=== PATIENT | male | born 1990 | race Caucasian/White ===

== ENCOUNTER 2017-01-25 08:15 | Emergency (ER) | payer SELFPAY ==
--- NOTE | ~2017-01-25 | ER ---
PATIENT'S NAME: VIRAL JACOBSON [facility] AGE: 26 Y [address] ROOM: [place] [address] LOCATION: [facility] ADMIT DATE: 01/25/2017 ER/Outpatient Report DISCHARGE DATE: 01/25/2017 FAMILY PHYSICIAN: PHYSICIAN, NO ATTENDING PHYSICIAN: Christopher Dupree CHIEF COMPLAINT: Right ear pain and decreased hearing. HISTORY OF PRESENT ILLNESS: Mr. Jacobson notes that for the last few days he has had discomfort in his right ear. It has not responded to home remedies. The ability to hear was diminished significantly last night. He denies any fevers. It is all on the right side. He states that he has had this before. PAST MEDICAL HISTORY: Documented on the record and reviewed by me. SOCIAL HISTORY: Documented on the record and reviewed by me. MEDICATIONS: Documented on the record and reviewed by me. ALLERGIES: DOCUMENTED ON THE RECORD AND REVIEWED BY ME. REVIEW OF SYSTEMS: All systems were reviewed and negative except as noted in the HPI. PHYSICAL EXAMINATION: VITAL SIGNS: Blood pressure 127/75, pulse 80, respiratory rate 16, temperature 97.5, and SpO2 is 96% on room air. Pain is rated 9/10. GENERAL: An age appropriate male, sitting upright on exam table, in no apparent pain or distress. HEENT: Normocephalic and atraumatic. Eyes are PERRL. Extraocular movements are intact. TMs: Left TM is slightly bulging air-fluid levels but clear fluid posterior. No obvious abnormalities. Right ear is notable for otitis externa with no significant sloughing or drainage. Painful manipulation of the pinna. I could not visualize the TM. There is no tenderness of the mastoid process. No other obvious abnormalities. No pain at the TMJ joint. The remainder of the exam is grossly unremarkable. Even and unlabored respirations. Normal extremities. Skin appears intact with no obvious PATIENT'S NAME: VIRAL JACOBSON [facility] AGE: 26 Y [address] ROOM: [place] [address] LOCATION: [facility] ADMIT DATE: 01/25/2017 ER/Outpatient Report DISCHARGE DATE: 01/25/2017 FAMILY PHYSICIAN: PHYSICIAN, NO ATTENDING PHYSICIAN: Christopher Dupree. LABORATORY DATA AND X-RAYS: None. IMPRESSION: Right-sided otitis externa with possible otitis media. EMERGENCY DEPARTMENT COURSE: The patient was seen and evaluated as above. The patient is with definite otitis externa, no clear swimming exposures recently, however, clinical presentation is consistent. We will treat with Cortisporin otic and amoxicillin for possible otitis media. Follow up as needed. Return if worse. MD PAT WRIGHT/denis /[id number] d: 01/25/17 1142 t: 02/11/17 0900, OUTPATIENT REPORT
== END 2017-01-25 08:40 | disposition disaster alternative care site (69) ==
LOC: GMED 08:15
DX: H60.91 Unspecified otitis externa, right ear (principal); F17.210 Nicotine dependence, cigarettes, uncomplicated; Z79.899 Other long term (current) drug therapy